=== PATIENT | male | born 1990 | race African-American/Black ===

== ENCOUNTER 2017-06-10 07:38 | Emergency (ER) | payer OTHER ==
[~2017-06-10] VITALS: Ht 170.2 cm; Wt 70.0 kg
[~2017-06-10 07:38] MED LIST: KETO2%T TOP; Physical Therapy; [UNRECOGNIZED DRUG - CODE] TOP
[2017-06-10 07:43] VITALS: BP 144/81; PULSE 72; RESP 12; TEMP 97.7; O2SAT 99
[2017-06-10] MEDS ORDERED: NAPR500T2 PO (08:10)
[2017-06-10] MEDS ORDERED: CYCL5TAB PO (08:10)
[2017-06-10] MEDS ORDERED: ORPHENADRINE INJ 60 MG/2 ML AMP IM ONE (08:15)
[2017-06-10] MEDS ORDERED: KETOROLAC TROMETHAMINE 60 MG/2 ML (IM) VIAL IM ONE (08:15)
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
== END 2017-06-10 08:35 | disposition home or self-care (01) ==
LOC: NEPD 07:38
DX: M54.6 Pain in thoracic spine (principal); R50.9 Fever, unspecified; R53.81 Other malaise; R07.9 Chest pain, unspecified; R06.02 Shortness of breath; R11.2 Nausea with vomiting, unspecified; R19.7 Diarrhea, unspecified; Z72.0 Tobacco use; Z79.899 Other long term (current) drug therapy
CPT/HCPCS: 96372; 99284; J1885; J2360